=== PATIENT | female | born 1950 | race Caucasian/White ===

== ENCOUNTER 2021-03-02 19:39 | Inpatient (IN) ==
[2021-03-02 23:19] LABS: Hematocrit 48.4 % (35.3-44.9); Hemoglobin 16.4 g/dL (11.5-15.4); Immature Granulocytes % 0.5 % (0-4); Mean Corpuscular HGB Conc 33.9 g/dL (31.6-35.5); Mean Corpuscular Hemoglobin 30.9 pg (28.0-33.3); Mean Corpuscular Volume 91.1 fL (83.0-100.0); Mean Platelet Volume 9.5 fL (9.4-12.4); Monocytes % 16.5 %; Platelet Count 296 K/mcL (140-400); Red Blood Count 5.31 M/mcL (3.82-4.97); Red Cell Distribution Width 12.7 % (11.5-14.5); Segmented Neutrophils % 60.3 %; White Blood Count 8.5 K/mcL (4.3-11.1)
[2021-03-02 23:20] LABS: Basophils # 0.1 K/mcL (0.0-0.2); Basophils % 0.6 %; Eosinophils % 0.1 %; Lymphocytes # 1.9 K/mcL (0.6-4.6); Monocytes # 1.4 K/mcL (0.0-1.3); Neutrophils # 5.2 K/mcL (1.6-8.9)
[2021-03-02 23:36] LABS: BUN/Creatinine Ratio 22 (6-26); Blood Urea Nitrogen 21 mg/dL (8-23); Calcium 9.7 mg/dL (8.6-10.3); Carbon Dioxide 30 mEq/L (23-29); Chloride 95 mEq/L (98-107); Glucose 122 mg/dL (70-105); Osmolality,Calculated 280 (280-300); Potassium 2.9 mEq/L (3.5-5.1); Sodium 133 mEq/L (136-145); eGFR For African Americans > 60 (> 60); eGFR For Non-African Americans 59 (> 60)
[2021-03-02 23:37] LABS: Troponin I < 0.03 ng/mL (< 0.04)
[2021-03-03] MEDS ORDERED: Isovue-370 500 ML BOTTLE IVP ONE (00:19)
[2021-03-03] MEDS ORDERED: Ipratropium/Albuterol Neb 3 ML IH ONE (02:05)
[2021-03-03] MEDS ORDERED: Potassium Chloride Elixir 20 MEQ/15 ML UDC PO ONE (02:05)
[2021-03-03 02:08] LABS: Adenovirus Not Detected (Not Detect); Bordetella Pertussis Not Detected (Not Detect); Chlamydophila pneumoniae Not Detected (Not Detect); Coronavirus 229E Not Detected (Not Detect); Coronavirus HKU1 Not Detected (Not Detect); Coronavirus NL63 Not Detected (Not Detect); Coronavirus OC43 Not Detected (Not Detect); Human Metapneumovirus Not Detected (Not Detect); Human Rhinovirus/Enterovirus Not Detected (Not Detect); Influenza A Subtype 2009 H1 Not Detected (Not Detect); Influenza B Not Detected (Not Detect); Mycoplasma pneumoniae Not Detected (Not Detect); Parainfluenza Virus 1 Not Detected (Not Detect); Parainfluenza Virus 2 Not Detected (Not Detect); Parainfluenza Virus 3 Not Detected (Not Detect); Parainfluenza Virus 4 Not Detected (Not Detect); Respiratory Syncytial Virus DETECTED (Not Detect); SARS-CoV-2 Not Detected (Not Detect)
[2021-03-03] MEDS ORDERED: Melatonin 3 MG TABLET PO PRN (03:59)
[2021-03-03] MEDS ORDERED: Naloxone 0.4 MG/ML INJ IVP PRN (03:59)
[2021-03-03] MEDS ORDERED: Ondansetron 4 MG/2 ML VIAL IVP PRN (03:59)
[2021-03-03] MEDS ORDERED: methylPREDNISolone 125 MG/2 ML VIAL IVP STA (04:24)
[2021-03-03] MEDS: *HR* Enoxaparin 40 MG/0.4 ML SYRINGE SQ SCH (04:52)
[2021-03-03 06:24] LABS: Basophils # 0.1 K/mcL (0.0-0.2); Basophils % 0.6 %; Hematocrit 46.3 % (35.3-44.9); Hemoglobin 15.4 g/dL (11.5-15.4); Immature Granulocytes % 0.6 % (0-4); Lymphocytes % 11.5 %; Mean Corpuscular HGB Conc 33.3 g/dL (31.6-35.5); Mean Corpuscular Volume 93.3 fL (83.0-100.0); Mean Platelet Volume 9.7 fL (9.4-12.4); Monocytes # 0.9 K/mcL (0.0-1.3); Monocytes % 9.7 %; Neutrophils # 6.8 K/mcL (1.6-8.9); Platelet Count 258 K/mcL (140-400); Red Blood Count 4.96 M/mcL (3.82-4.97); Red Cell Distribution Width 13.1 % (11.5-14.5); Segmented Neutrophils % 77.6 %; White Blood Count 8.8 K/mcL (4.3-11.1)
[2021-03-03 06:32] LABS: Prothrombin Time 11.4 Seconds (9.4-12.1)
[2021-03-03] MEDS: Ipratropium/Albuterol Neb 3 ML IH SCH ×5 (07:45→23:56)
[2021-03-03] MEDS: Budesonide/Formoterol 160/4.5 1 PUFF INH IH SCH ×2 (07:49→19:26)
[2021-03-03] MEDS: Saline Nasal Spray 44 ML BOTTLE NS SCH ×4 (07:58→20:05)
[2021-03-03] MEDS: Saliva Stimulant 44.3ml BOTTLE PO SCH ×4 (07:59→20:05)
[2021-03-03] MEDS ORDERED: MethylPREDNISolone 40 MG/ML VIAL IVP SCH (08:00)
[2021-03-03] MEDS: Artificial Tears SOLN 15 ML BOTTLE BOTH EYES SCH ×4 (08:05→20:05)
[2021-03-03] MEDS: Lactobacillus 1 EACH CAP.SPRINK PO SCH ×2 (08:06→20:06)
[2021-03-03] MEDS: Azithromycin 250 MG TABLET PO SCH (08:06)
[2021-03-03] MEDS: Multivit/Ca/Min/Fe/FA 1 TAB TABLET PO SCH (08:06)
[2021-03-03 08:18] LABS: BUN/Creatinine Ratio 22 (6-26); Blood Urea Nitrogen 20 mg/dL (8-23); Calcium 9.4 mg/dL (8.6-10.3); Carbon Dioxide 25 mEq/L (23-29); Chloride 97 mEq/L (98-107); Glucose 161 mg/dL (70-105); Magnesium 3.1 mg/dL (1.6-2.6); Osmolality,Calculated 284 (280-300); Sodium 134 mEq/L (136-145); eGFR For African Americans > 60 (> 60); eGFR For Non-African Americans > 60 (> 60)
[2021-03-03] MEDS: Potassium Chloride Elixir 20 MEQ/15 ML UDC PO SCH ×2 (08:49→20:06)
[2021-03-03] MEDS ORDERED: Chlorhexidine Rinse 15 ML MOUTHWASH MM SCH (09:00)
[2021-03-03] MEDS ORDERED: D5% in Water 1,000 ML IVC PRN (13:47)
[2021-03-03] MEDS ORDERED: *HR* Dextrose 50 % in Water (Syg) 50 ML SYRINGE IVP PRN (13:47)
[2021-03-03] MEDS ORDERED: Dextrose Gel 15 GM/37.5 ML TUBE PO PRN ×2 (13:47)
[2021-03-03] MEDS: Insulin LISPRO 300 UNITS/3 ML VIAL SUBQ SCH (17:41)
[2021-03-03] MEDS: MethylPREDNISolone 40 MG/ML VIAL IVP SCH (20:05)
[2021-03-04] MEDS: Ipratropium/Albuterol Neb 3 ML IH SCH ×6 (04:02→23:19)
[2021-03-04 04:12] LABS: ABG Base Excess -2 mEq/L (-2 to 3); ABG HCO3 22 mEq/L (21-27); ABG Oxygen Saturation 95 % (95-98); ABG PCO2 36 mmHg (35-45); ABG PO2 76 mmHg (85-104); ABG TCO2 24 mEq/L (20-26)
[2021-03-04] MEDS: *HR* Enoxaparin 40 MG/0.4 ML SYRINGE SQ SCH (05:04)
[2021-03-04 06:00] LABS: Hematocrit 44.3 % (35.3-44.9); Hemoglobin 14.9 g/dL (11.5-15.4); Mean Corpuscular HGB Conc 33.6 g/dL (31.6-35.5); Mean Corpuscular Hemoglobin 31.3 pg (28.0-33.3); Mean Corpuscular Volume 93.1 fL (83.0-100.0); Mean Platelet Volume 9.9 fL (9.4-12.4); Platelet Count 270 K/mcL (140-400); Red Blood Count 4.76 M/mcL (3.82-4.97); Red Cell Distribution Width 13.2 % (11.5-14.5); White Blood Count 11.6 K/mcL (4.3-11.1)
[2021-03-04 06:08] LABS: BUN/Creatinine Ratio 29 (6-26); Blood Urea Nitrogen 25 mg/dL (8-23); Calcium 9.1 mg/dL (8.6-10.3); Carbon Dioxide 23 mEq/L (23-29); Chloride 102 mEq/L (98-107); Glucose 151 mg/dL (70-105); Osmolality,Calculated 285 (280-300); Sodium 134 mEq/L (136-145); eGFR For African Americans > 60 (> 60); eGFR For Non-African Americans > 60 (> 60)
[2021-03-04] MEDS: Lactobacillus 1 EACH CAP.SPRINK PO SCH ×2 (08:03→19:54)
[2021-03-04] MEDS: MethylPREDNISolone 40 MG/ML VIAL IVP SCH ×2 (08:03→19:54)
[2021-03-04] MEDS: Azithromycin 250 MG TABLET PO SCH (08:03)
[2021-03-04] MEDS: Multivit/Ca/Min/Fe/FA 1 TAB TABLET PO SCH (08:03)
[2021-03-04] MEDS: Saliva Stimulant 44.3ml BOTTLE PO SCH ×4 (08:04→19:53)
[2021-03-04] MEDS: Saline Nasal Spray 44 ML BOTTLE NS SCH ×4 (08:04→19:53)
[2021-03-04] MEDS: Insulin LISPRO 300 UNITS/3 ML VIAL SUBQ SCH ×3 (08:04→16:25)
[2021-03-04] MEDS: Artificial Tears SOLN 15 ML BOTTLE BOTH EYES SCH ×4 (08:04→19:54)
[2021-03-04] MEDS: Budesonide/Formoterol 160/4.5 1 PUFF INH IH SCH ×2 (08:12→19:54)
[2021-03-04] MEDS: hydroCHLOROthiazide 25 MG TABLET PO SCH (11:39)
[2021-03-05 03:15] LABS: Hematocrit 44.4 % (35.3-44.9); Hemoglobin 14.5 g/dL (11.5-15.4); Mean Corpuscular HGB Conc 32.7 g/dL (31.6-35.5); Mean Corpuscular Hemoglobin 31.1 pg (28.0-33.3); Mean Corpuscular Volume 95.3 fL (83.0-100.0); Mean Platelet Volume 10.2 fL (9.4-12.4); Platelet Count 265 K/mcL (140-400); Red Blood Count 4.66 M/mcL (3.82-4.97); Red Cell Distribution Width 13.2 % (11.5-14.5); White Blood Count 12.7 K/mcL (4.3-11.1)
[2021-03-05] MEDS: Ipratropium/Albuterol Neb 3 ML IH SCH ×6 (03:22→23:21)
[2021-03-05 03:36] LABS: BUN/Creatinine Ratio 42 (6-26); Blood Urea Nitrogen 38 mg/dL (8-23); Carbon Dioxide 22 mEq/L (23-29); Chloride 102 mEq/L (98-107); Glucose 142 mg/dL (70-105); Osmolality,Calculated 293 (280-300); Potassium 4.1 mEq/L (3.5-5.1); Sodium 136 mEq/L (136-145); eGFR For African Americans > 60 (> 60); eGFR For Non-African Americans > 60 (> 60)
[2021-03-05] MEDS: *HR* Enoxaparin 40 MG/0.4 ML SYRINGE SQ SCH (05:39)
[2021-03-05] MEDS: Insulin LISPRO 300 UNITS/3 ML VIAL SUBQ SCH ×3 (07:15→17:41)
[2021-03-05] MEDS: Budesonide/Formoterol 160/4.5 1 PUFF INH IH SCH ×2 (07:35→19:57)
[2021-03-05] MEDS: MethylPREDNISolone 40 MG/ML VIAL IVP SCH ×2 (09:07→19:44)
[2021-03-05] MEDS: hydroCHLOROthiazide 25 MG TABLET PO SCH (09:07)
[2021-03-05] MEDS: Lactobacillus 1 EACH CAP.SPRINK PO SCH ×2 (09:07→19:44)
[2021-03-05] MEDS: Multivit/Ca/Min/Fe/FA 1 TAB TABLET PO SCH (09:07)
[2021-03-05] MEDS: Azithromycin 250 MG TABLET PO SCH (09:07)
[2021-03-05] MEDS: Artificial Tears SOLN 15 ML BOTTLE BOTH EYES SCH ×4 (09:09→19:46)
[2021-03-05] MEDS: Saline Nasal Spray 44 ML BOTTLE NS SCH ×4 (09:09→19:47)
[2021-03-05] MEDS: Saliva Stimulant 44.3ml BOTTLE PO SCH ×4 (09:09→19:47)
[2021-03-06] MEDS: Ipratropium/Albuterol Neb 3 ML IH SCH ×6 (03:07→23:55)
[2021-03-06] MEDS: *HR* Enoxaparin 40 MG/0.4 ML SYRINGE SQ SCH (05:24)
[2021-03-06] MEDS: Budesonide/Formoterol 160/4.5 1 PUFF INH IH SCH (07:19)
[2021-03-06] MEDS: Insulin LISPRO 300 UNITS/3 ML VIAL SUBQ SCH ×3 (08:02→16:43)
[2021-03-06] MEDS: Azithromycin 250 MG TABLET PO SCH (08:09)
[2021-03-06] MEDS: Lactobacillus 1 EACH CAP.SPRINK PO SCH ×2 (08:09→19:28)
[2021-03-06] MEDS: Artificial Tears SOLN 15 ML BOTTLE BOTH EYES SCH ×4 (08:09→19:29)
[2021-03-06] MEDS: hydroCHLOROthiazide 25 MG TABLET PO SCH (08:09)
[2021-03-06] MEDS: MethylPREDNISolone 40 MG/ML VIAL IVP SCH ×2 (08:09→19:29)
[2021-03-06] MEDS: Multivit/Ca/Min/Fe/FA 1 TAB TABLET PO SCH (08:09)
[2021-03-06] MEDS: Saliva Stimulant 44.3ml BOTTLE PO SCH ×4 (08:10→19:29)
[2021-03-06] MEDS: Saline Nasal Spray 44 ML BOTTLE NS SCH ×4 (08:10→19:29)
[2021-03-06] MEDS: Budesonide Neb 0.5 MG/2 ML IH SCH (23:56)
[2021-03-07] MEDS: Ipratropium/Albuterol Neb 3 ML IH SCH ×6 (03:33→23:58)
[2021-03-07] MEDS: *HR* Enoxaparin 40 MG/0.4 ML SYRINGE SQ SCH (05:11)
[2021-03-07] MEDS: Budesonide Neb 0.5 MG/2 ML IH SCH ×2 (07:49→20:09)
[2021-03-07] MEDS: Insulin LISPRO 300 UNITS/3 ML VIAL SUBQ SCH ×3 (08:29→16:39)
[2021-03-07] MEDS: Artificial Tears SOLN 15 ML BOTTLE BOTH EYES SCH ×4 (08:38→20:20)
[2021-03-07] MEDS: Azithromycin 250 MG TABLET PO SCH (08:38)
[2021-03-07] MEDS: Saliva Stimulant 44.3ml BOTTLE PO SCH ×4 (08:38→20:20)
[2021-03-07] MEDS: Saline Nasal Spray 44 ML BOTTLE NS SCH ×4 (08:38→20:20)
[2021-03-07] MEDS: Multivit/Ca/Min/Fe/FA 1 TAB TABLET PO SCH (08:38)
[2021-03-07] MEDS: MethylPREDNISolone 40 MG/ML VIAL IVP SCH ×2 (08:39→20:20)
[2021-03-07] MEDS: hydroCHLOROthiazide 25 MG TABLET PO SCH (08:39)
[2021-03-07] MEDS: Lactobacillus 1 EACH CAP.SPRINK PO SCH ×2 (08:42→20:20)
[2021-03-08] MEDS ORDERED: polyethylene glycoL 3350 17 GM POWD.PACK PO PRN (01:18)
[2021-03-08] MEDS: Ipratropium/Albuterol Neb 3 ML IH SCH ×3 (04:09→11:08)
[2021-03-08] MEDS: *HR* Enoxaparin 40 MG/0.4 ML SYRINGE SQ SCH (05:10)
[2021-03-08 07:25] VITALS: BP 139/76; PULSE 61; TEMP 97.5
[2021-03-08] MEDS: Budesonide Neb 0.5 MG/2 ML IH SCH (07:43)
[2021-03-08] MEDS ORDERED: Saline Nasal Spray 44 ML BOTTLE NS PRN (07:49)
[2021-03-08] MEDS ORDERED: Artificial Tears SOLN 15 ML BOTTLE BOTH EYES PRN (07:49)
[2021-03-08] MEDS ORDERED: Saliva Stimulant 44.3ml BOTTLE PO PRN (07:49)
[2021-03-08] MEDS: Insulin LISPRO 300 UNITS/3 ML VIAL SUBQ SCH (07:53)
[2021-03-08] MEDS: Azithromycin 250 MG TABLET PO SCH (08:00)
[2021-03-08] MEDS: MethylPREDNISolone 40 MG/ML VIAL IVP SCH (08:00)
[2021-03-08] MEDS: Multivit/Ca/Min/Fe/FA 1 TAB TABLET PO SCH (08:01)
[2021-03-08] MEDS: Lactobacillus 1 EACH CAP.SPRINK PO SCH (08:01)
[2021-03-08] MEDS: hydroCHLOROthiazide 25 MG TABLET PO SCH (08:01)
[2021-03-08 09:10] VITALS: O2SAT 94
== END 2021-03-08 12:08 | disposition home or self-care (01) | DRG 189 ==
LOC: EMEROOARM 19:39 → 3BNU 19:39 → SUATTDRO 03-03 04:04 → 3BNU 03-03 04:20
PROVIDERS: ADMIT Internal Medicine; ATTEND Internal Medicine